=== PATIENT | male | born 1995 | race American Indian/Alaskan Native ===

== ENCOUNTER 2016-12-24 10:21 | Emergency (ER) | payer SELFPAY ==
[2016-12-24 10:56] VITALS: BP 138/104
--- NOTE | 2016-12-24 13:01 | Emergency Department Report ---
HPI - General Chief Complaint: Headache Time Seen by Provider: 12/24/16 12:58 - HPI HPI: Patient here reports AMARO and toothache x 3 weeks. He reports AMARO on/off and he took tylenol without relief. Denies neck pain, dizziness, neck stiffness. Denies any fever or chills. Headache located to the front of his head pointing to his forehead. Denies any nausea vomiting. Denies any head injury. Reports occasional cough and he reports nasal congestion that she reports that night. Denies any shortness of breath or chest pain. Denies any blurred vision or difficulty seeing. Blood pressure elevated at 138/140 denies any history of high blood pressure. Tooth pain on the right side is 8 out of 10 and headache is 6 out of 10. He had similar incident in the past and he said he has a sinus infection. ED Past Medical Hx - Past Medical History Previous Medical History?: No - Surgical History Past Surgical History?: No - Family History Family history: no significant - Social History Smoking Status: Current Some Day Smoker Substance Use Type: Marijuana, Non Opiate Pain - Medications Home Medications: Home Medications Medication Instructions Recorded Confirmed Last Taken Type Amoxicillin [Amoxicillin TAB] 875 mg PO BID #20 tablet 12/24/16 Unknown Rx Fluticasone [Flonase] 1 spray NS QDAY #1 bottle 12/24/16 Unknown Rx Ibuprofen [Motrin] 600 mg PO Q8H PRN #15 tablet 12/24/16 Unknown Rx Loratadine [Claritin] 10 mg PO DAILY #10 tablet 12/24/16 Unknown Rx ED Review of Systems ROS: Stated complaint: HEAD/MOUTH PAIN Other details as noted in HPI Comment: All other systems reviewed and negative Constitutional: denies: chills, fever Eyes: denies: eye pain, vision change ENT: dental pain, congestion. denies: ear pain, throat pain Respiratory: no symptoms reported Cardiovascular: denies: chest pain, palpitations, edema, syncope Gastrointestinal: denies: abdominal pain, nausea, vomiting, diarrhea Musculoskeletal: denies: back pain, arthralgia Skin: denies: rash Neurological: headache. denies: weakness, numbness, paresthesias, abnormal gait , vertigo Physical Exam - Physical Exam Vital Signs: Vital Signs 12/24/16 10:52 Temperature 98.2 F Pulse Rate 65 Respiratory 18 Rate Blood Pressure 138/104 O2 Sat by Pulse 100 Oximetry General: This is a 21-year-old male well-nourished well-developed in no acute distress. Physical Exam: Head: [Normocephalic atraumatic Mouth: Moist, no pharyngeal exudate or erythema. Uvula is midline and oral airway is patent. No gingival enlargement or dental tenderness. No facial swelling. No peritonsillar abscesses. No dental caries. Neck: Supple, no C-spine tenderness, no tracheal deviation. Nontender to palpate. no adenopathy Ears: Bilateral TMs congested without erythema .bilateral EAC without any redness swelling or drainage Eyes: Bilateral pupils equal and reactive to light, bilateral EOM intact. Bilateral sclera and conjunctiva without injection. Normal accommodation Nose: Mucosa moist, positive congestion with erythema. Positive clear drainage. frontal sinus tender to palpate. Lungs: Clear to auscultate bilaterally no rhonchi wheezes or rales. Normal work of breathing extremity; No CCE. +2 pulses. No neurovascular compromise Cardiovascular: S1-S2, regular rate rhythm. No murmurs. Skin: clean Dry and intact no rash no lesions Psych: Normal mood and behavior ED Course Vital Signs 12/24/16 10:52 Temperature 98.2 F Pulse Rate 65 Respiratory 18 Rate Blood Pressure 138/104 O2 Sat by Pulse 100 Oximetry - Reevaluation(s) Reevaluation #1: 12/24/16 16:32 Patient given norco 5/325mg 2 tablets in emergency room ED Medical Decision Making - Medical Decision Making ED course: The patient that based on my physical findings he has a sinus infection. Discussed with him diagnosis and treatment plan. Critical care attestation.: If time is entered above; I have spent that time in minutes in the direct care of this critically ill patient, excluding procedure time. ED Disposition Clinical Impression: Toothache, Elevated blood pressure (not hypertension) Sinusitis Qualifiers: Sinusitis location: frontal Chronicity: acute Recurrence: not specified as recurrent Qualified Code(s): J01.10 - Acute frontal sinusitis, unspecified Headache Qualifiers: Headache type: unspecified Headache chronicity pattern: acute headache Intractability: not intractable Qualified Code(s): R51 - Headache Disposition: DISCHARGED TO HOME OR SELFCARE Is pt being admited?: No Does the pt Need Aspirin: No Condition: Stable Instructions: Sinusitis (ED), Acute Headache (ED), Toothache (ED), Hypertension (ED), DASH Eating Plan (ED) Additional Instructions: Please follow-up with outside Medical Center in 5 days for follow-up sinus infection Please see medication as prescribed. Prescriptions: Amoxicillin [Amoxicillin TAB] 875 mg PO BID #20 tablet Fluticasone [Flonase] 1 spray NS QDAY #1 bottle Ibuprofen [Motrin] 600 mg PO Q8H PRN #15 tablet PRN Reason: Pain Loratadine [Claritin] 10 mg PO DAILY #10 tablet Referrals: [facility] [Outside] - 12/29/16 Forms: Work/School Release Form(ED)
[2016-12-24] MEDS ORDERED: NORCO 5/325 PO ONE (13:12)
== END 2016-12-24 14:03 | disposition home or self-care (01) ==
LOC: ED 10:21
DX: K08.89 Other specified disorders of teeth and supporting structures (principal); J01.10 Acute frontal sinusitis, unspecified; R51 Headache; R03.0 Elevated blood-pressure reading, without diagnosis of hypertension; F17.200 Nicotine dependence, unspecified, uncomplicated; F12.10 Cannabis abuse, uncomplicated
CPT/HCPCS: 99282